=== PATIENT | male | born 1940 | race Caucasian/White ===

== ENCOUNTER 2020-07-18 19:51 | Inpatient (IN) | payer MEDICARE, OTHER ==
--- NOTE | 2020-07-18 19:57 | ED.PDOC ---
History of Present Illness - General Chief Complaint: Respiratory Problem Stated Complaint: Cough Time Seen by Provider: 07/18/20 19:52 Source: patient, RN notes reviewed, Vital Signs reviewed, EMS notes reviewed, old records, other - other ER Exam Limitations: no limitations - History of Present Illness Initial Comments: 80 yo Male with hx HTN comes in with 6 days of worsening cough, shortness of breath, fatigue, malaise. Denies sore throat, except when he coughs, no change in taste or smell. [facility]. Was found to be covid positive, WBC 3.6, otherwise cbc unremarkable, CXR showed bilateral pulmonary infiltrates. blood gas wioth low PO2 at 52.9, ph 7.472, [id number]. no hx of lung disease, does not wear oxygen at home. EKG shows NSR with PVC, LAD, LAFB, q wave in v1-v2, no prior for comparison. Denies any current chest pain. CMP shows Cr 1.34, which he recieved a small bolus per [facility] physician. cpk 43, bnp 150, troponin negative. d-dimer 574. Patient was given a dose of rocephin prior to transfer. Allergies/Adverse Reactions: Allergies NO KNOWN ALLERGY Allergy (Verified 07/18/20 20:05) Home Medications: Ambulatory Orders Carvedilol 6.25 mg PO DAILY 07/18/20 Losartan Potassium 50 mg PO DAILY 07/18/20 Pravastatin Sodium 20 mg PO DAILY 07/18/20 Warfarin Sodium 5 mg PO DAILY 07/18/20 Review of Systems - Review of Systems Constitutional: States: chills, fever, malaise, weakness EENTM: Denies: throat swelling, mouth pain Respiratory: States: cough, short of breath. Denies: wheezing Cardiology: Denies: chest pain, palpitations Gastrointestinal/Abdominal: Denies: abdominal pain, diarrhea, nausea, vomiting Genitourinary: Denies: frequency Musculoskeletal: Denies: joint pain, joint swelling, muscle pain, muscle stiffness Skin: Denies: rash Neurological: Denies: numbness, paresthesia, seizure, weakness Endocrine: Denies: unexplained weight gain, unexplained weight loss Hematologic/Lymphatic: Denies: blood clots, easy bleeding, easy bruising Past Medical History (General) - Patient Medical History Hx Seizures: No Hx Stroke: No Hx Dementia: No Hx Asthma: No Hx of COPD: No Hx Congestive Heart Failure: No Hx Hypertension: Yes Hx Diabetes: No Hx Renal Disease: No Hx Cancer: No Hx of HIV: No Hx Hepatitis B: No Hx Hepatitis C: No Hx MRSA: No Hx Other PMH: Yes - aortic dissection repair 2003 - Female History Patient is a Female of Child Bearing Age (10 -59 yrs old): No Family Medical History - Family History Mother Family History: Unknown Physical Exam - Physical Exam General Appearance: Alert, Comfortable, No apparent distress, Well Developed, Well Groomed, Well Hydrated, Well Nourished Eyes, Ears, Nose, Throat Exam: normal ENT inspection, other - hard of hearing. hearing aids in place. Neck: non-tender, full range of motion, supple, normal inspection Respiratory: chest non-tender, no respiratory distress, no accessory muscle use, rhonchi, other - hacking cough noted Cardiovascular/Chest: normal peripheral pulses, regular rate, rhythm, no edema Peripheral Pulses: radial,right: 2+, radial,left: 2+, dorsalis pedis,right: 2+, dorsalis pedis,left: 2+ Gastrointestinal/Abdominal: normal bowel sounds, non tender, soft, no organomegaly, no pulsatile mass Rectal Exam: deferred Extremity: normal range of motion, non-tender, normal inspection, no pedal edema, no calf tenderness, normal capillary refill 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 The history and assessments from nurses notes were reviewed and considered, and the patient's home medication list was also reviewed and considered. My assessment and the results of testing completed here in the ED were discussed with the patient. All questions were answered, and they express understanding of my assessment and the plan. will order bamlanivimab, also given dexamethasone. Already given antibiotics at [facility]. Will order blood cultures now. patient was transferred to the floor in stable condition. Yael Hou DO #[id number] 07/18/20 21:18 07/18/20 23:02 - Results/Orders Results/Orders: patient transferred to floor in stable condition. - EKG/XRAY/CT EKG: Sinus XRAY: chest Departure - Departure Clinical Impression: Pneumonia due to COVID-19 virus, Hypoxemia Disposition: Admit Patient Home Medications: Ambulatory Orders Carvedilol 6.25 mg PO DAILY 07/18/20 Losartan Potassium 50 mg PO DAILY 07/18/20 Pravastatin Sodium 20 mg PO DAILY 07/18/20 Warfarin Sodium 5 mg PO DAILY 07/18/20 Decision To Admit - Decistion To Admit Decision to Admit Reason: Medical Nature Decision to Admit Date: 07/18/20 Decision to Admit Time: 20:01
[2020-07-18] MEDS ORDERED: DEXAMETHASONE INJ 10 MG/ML VIAL IV ONE (20:10)
[2020-07-18] MEDS ORDERED: SODIUM CHLORIDE 0.9% 250ML 250 ML ONE (20:34)
--- NOTE | 2020-07-18 22:44 | HP ---
SUPERVISING PHYSICIAN: Ivan Diaz MD CHIEF COMPLAINT: Coughing. HISTORY OF PRESENT ILLNESS: Mr. Meier is an 80 year-old patient who presented to the Emergency Room from [place]. He has a history of 6 days of worsening cough, shortness of breath, fatigue with general malaise. He was diagnosed with Covid in [place] at the Emergency Room. His chest x-ray there showed bilateral pulmonary infiltrates with the patient showing some room air hypoxia. He was referred to the Emergency Room initially for reevaluation and transferred from the [place] Emergency Room to [facility] Emergency Room for possible infusion and monoclonal antibodies and admission for underlying Covid pneumonitis. Vital signs in the Emergency Room showed oxygen saturation 92% on 2 liter nasal cannula. Laboratory studies showed white count 3,300 with no lymphocytic count. He does have a history of aortic valve replacement and is on chronic Coumadin but his D-dimer on admission was 1310, INR was therapeutic at 3.12. Chemistries showed C-reactive protein 10.4, negative troponin. Blood cultures were completed. Respiratory panel showed positive for Covid and he was started on monoclonal infusion. Given he had been maintaining 02 saturations around 92% on 2 liter nasal cannula and was showing some hypoxia, the patient is going to be placed in observation for initial treatment for Covid pneumonitis. At time of observation he was showing to be in stable condition. PAST MEDICAL HISTORY: 1. Hypertension. 2. 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 PAST SURGICAL HISTORY: 1. Triple A repair 16 years previously. 2. Aortic valve replacement 16 years previously on chronic Coumadin therapy. 3. Appendectomy. 4. Bilateral cataracts. 5. Transthoracic aortic dissection. CURRENT MEDICATIONS: 1. Coumadin 5 mg daily. 2. Losartan 50 mg daily. 3. Pravastatin 20 mg daily. 4. Carvedilol 6.25 mg b.i.d. 5. Amlodipine 5 mg daily. ALLERGIES: No known drug allergies. FAMILY HISTORY: Mother at age 99 due to advanced age. Father at age 73 due to malnutrition secondary to a CVA. He has one sister who currently is in the hospital with a brain tumor and a stroke at age 75. SOCIAL HISTORY: The patient lives in [place], [place]. He is retired. He smoked tobacco but quit at age 45. He drinks alcohol on rare occasions. He is . He denies any illicit drug usage. REVIEW OF SYSTEMS: CONSTITUTIONAL: Positive for general malaise, fevers, weakness. HEENT: Denies headaches. vision changes, sore throat. nasal congestion, earaches. CHEST: As noted in history of present illness. Denies wheezing but has a cough and increasing shortness of breath. HEART: Denies chest pain, palpitations, or syncopal episodes. ABDOMEN: Denies nausea, vomiting, diarrhea or constipation, abdominal pain. GENITOURINARY: Denies dysuria, hematuria or polyuria. MUSCULOSKELETAL: Denies joint swelling, joint pain, muscle pain, muscle stiffness. SKIN: Denies lesions, rashes, moles or unexplained changes. NEUROLOGIC: Denies paresthesias, ataxia, numbness, seizures, weakness. HEMATOLOGICAL: Denies unexplained bleeding, easy bruising or transfusion reaction but is on chronic Coumadin therapy. PHYSICAL EXAMINATION: VITAL SIGNS: Temperature in the Emergency Room 99.0, pulse 63, blood pressure 130/70, respirations 18, oxygen saturation 93% on 2 liter nasal cannula. He does not wear oxygen at home. GENERAL: The patient looks to be resting comfortably and in no acute distress. HEENT: Tympanic membranes clear bilaterally. Oropharynx pink, moist without lesions. NECK: Supple, non-tender, full range of motion, no jugular venous distention. HEART: Regular rhythm with audible clicks from aortic valve. No other murmurs, rubs, or gallops noted. CHEST: Lung sounds a little diminished towards the bases, no rhonchi, rales, or wheezes noted. ABDOMEN: Soft, non-tender, positive bowel sounds. EXTREMITIES: No cyanosis, clubbing, or edema. NEUROLOGIC: Cranial nerves II through XII grossly intact, no obvious motor or sensory deficits. Facial features were symmetrical. Extraocular movements within normal limits. No notable nystagmus. He is alert and oriented x3. SKIN: Warm, pink and dry. RECTAL: Deferred. BACK: Without CVA or vertebral tenderness. LABORATORY: White count 3,300, hemoglobin 12.3, hematocrit 36.7, platelet count 150,000, differential did show to be without a left shift but he had a low lymphocytic count. Coagulation studies showed INR at 3.12, D-dimer 1310. Chemistries with normal electrolytes. Creatinine 1.08, magnesium normal at 1.9, calcium 8.4, liver functions all was negative. Troponin less than 0.02. C- reactive protein 10.4. RADIOLOGY: Chest x-ray per radiology interpretation showed right upper lobe infiltrate concerning for pneumonia. ASSESSMENT: 1. Covid-19 pneumonitis. 2. Right upper lobe pneumonia secondary to #1. 3. History of aortic valve replacement, mechanical, on chronic Warfarin therapy. 4. Hypertension. PLAN: Mr. Meier is going to be placed in observation. He was give a monoclonal infusion in the Emergency Room. Will follow his labs. Will start him on treatment medically with Decadron, Rocephin, azithromycin. He will be on Align. He is already on Coumadin, we will monitor his INR. His INR has typically stayed therapeutic between 2.5 and 3.5. We will hold off on reducing it due to the fact that he just received monoclonal infusion. He is in observation at this point. Hopefully, we anticipate being able to discharge him within the next 24-48 hours. He will be on oxygen weaning down to room air as possible. Until we can transition patient to outpatient management, we will continue to monitor and treat as needed. #[id number] [facility]
[2020-07-18] MEDS ORDERED: ACETAMINOPHEN 325 MG TAB PO PRN (22:58)
[2020-07-18] MEDS ORDERED: SODIUM CHLORIDE 0.9% (FLUSH) 10 ML SYG IV PRN (22:58)
[2020-07-18] MEDS ORDERED: ONDANSETRON INJ 4 MG/2 ML VIAL IV PRN (22:58)
[2020-07-18] MEDS ORDERED: IV SET AND CAP CHANGE INJ INJ SCH (23:00)
[2020-07-19] MEDS: PANTOPRAZOLE SODIUM IV 40 MG VIAL IV SCH (05:59)
--- NOTE | 2020-07-19 07:09 | RAD ---
PROCEDURE:XR CHEST 1 VIEW HISTORY:Pneumonia COMPARISON: The prior film is not available for comparison FINDINGS: Multiple midline sternal wires are in place. The heart appears unremarkable.. There is infiltrate seen within the right upper lobe concerning for pneumonia. There are small linear atelectatic changes seen at the left lung base. Mild emphysematous changes seen in both lungs. There are no acute bony or soft tissue abnormalities. IMPRESSION: Right upper lobe infiltrate concerning for pneumonia. Electronically signed by: Cezar Packer MD 07/19/2020 7:07 AM [facility]
[2020-07-19] MEDS ORDERED: ALBUTEROL INHALER 64 PUFF/8GM INH PRN (08:31)
[2020-07-19] MEDS ORDERED: PRAVASTATIN SODIUM 20 MG TAB ONE (08:44)
[2020-07-19] MEDS ORDERED: LOSARTAN POTASSIUM 25 MG TAB ONE (08:44)
[2020-07-19] MEDS ORDERED: CARVEDILOL 3.125 MG TAB ONE (08:44)
[2020-07-19] MEDS ORDERED: SODIUM CHL 0.9% 50ML MIN-BAG+ 50 ML IVPB ONE (09:42)
[2020-07-19] MEDS ORDERED: DEXAMETHASONE INJ 10 MG/ML VIAL ONE (09:42)
[2020-07-19] MEDS ORDERED: cefTRIAXone SODIUM 1 GM VIAL ONE (09:42)
[2020-07-19] MEDS: PRAVASTATIN SODIUM 20 MG TAB PO SCH (09:57)
[2020-07-19] MEDS: NON-FORMULARY MEDICATION 1 EA MIS (Carvedilol [Carvedilol] 6.25 MG) PO SCH (10:00)
[2020-07-19] MEDS: NON-FORMULARY MEDICATION 1 EA MIS (Losartan Potassium [Losartan Potassium] 50 MG) PO SCH (10:00)
[2020-07-19] MEDS: cefTRIAXone SODIUM 1 GM in SODIUM CHL 0.9% 50ML MIN-BAG+ 50 ML IVPB SCH (10:01)
[2020-07-19] MEDS: DEXAMETHASONE INJ 4 MG/ML VIAL IV SCH (10:02)
[2020-07-19] MEDS ORDERED: SODIUM CHLORIDE 0.9% 250ML 250 ML ONE (10:10)
[2020-07-19] MEDS ORDERED: AZITHROMYCIN IV 500 MG VIAL IVPB ONE (10:10)
[2020-07-19] MEDS: AZITHROMYCIN IV 500 MG in SODIUM CHLORIDE 0.9% 250ML 250 ML IVPB SCH (10:16)
[2020-07-19] MEDS ORDERED: REMDESIVIR 200 MG in SODIUM CHLORIDE 0.9% 250ML 250 ML IVPB ONE (11:30)
[2020-07-19] MEDS: ALBUTEROL INHALER 64 PUFF/8GM INH SCH ×3 (13:27→21:30)
[2020-07-19] MEDS: WARFARIN SODIUM 5 MG TAB PO SCH (15:38)
--- NOTE | 2020-07-19 17:14 | PN ---
SUPERVISING PHYSICIAN: Ivan Diaz MD ] DATE: 07/19/20 SUBJECTIVE: The patient seems to be doing well. He has no complaints. He is maintaining his 02 saturations on room air at times, requiring just minimal oxygen support. OBJECTIVE: VITAL SIGNS: Temperature 97.9, pulse 76, blood pressure 146/74, respirations 16, oxygen saturation 91% on room air at rest. GENERAL: Patient looks to be resting comfortably, is eating lunch and is in no distress. CHEST: Lung sounds are fairly clear but still a little diminished toward the bases. HEART: Regular rate and rhythm. ABDOMEN: Soft, non-tender, positive bowel sounds. EXTREMITIES: Without edema. NEUROLOGIC: He is alert and oriented x 3. LABORATORY: No repeat laboratory studies from admission. Will follow labs per protocol other than is C-reactive protein went up a little bit at 12.2. RADIOLOGY: Chest x-ray this morning per radiology interpretation shows again right upper lobe infiltrate concerning for pneumonia. ASSESSMENT: 1. Covid-19 pneumonitis. 2. Right upper lobe pneumonia secondary to #1. 3. History of aortic valve replacement, mechanical, on chronic Warfarin therapy. 4. Hypertension. PLAN: Will continue with current plan of care at this point with Rocephin, azithromycin, Decadron, Align and Protonix. Given that he had a monoclonal infusion will hold off on Remdesivir. Will work to titrate his 02 down. At this point, he does remain in observation. I am hoping to be able to discharge him within the next 24 hours if possible. We will continue to monitor as needed for oxygen and lab per protocol. Until we can transition patient to outpatient management, we will continue to monitor and treat as needed. #[id number] [facility]
[2020-07-19] MEDS: amLODIPine BESYLATE 5 MG TAB PO SCH (20:49)
[2020-07-20] MEDS ORDERED: PANTOPRAZOLE SODIUM IV 40 MG VIAL ONE (04:35)
[2020-07-20] MEDS: PANTOPRAZOLE SODIUM IV 40 MG VIAL IV SCH (05:55)
[2020-07-20] MEDS ORDERED: SODIUM CHLORIDE 0.9% 250ML 250 ML ONE (08:36)
[2020-07-20] MEDS ORDERED: LOSARTAN POTASSIUM 25 MG TAB ONE (08:36)
[2020-07-20] MEDS ORDERED: CARVEDILOL 3.125 MG TAB ONE (08:36)
[2020-07-20] MEDS ORDERED: DEXAMETHASONE INJ 10 MG/ML VIAL ONE (08:36)
[2020-07-20] MEDS ORDERED: AZITHROMYCIN IV 500 MG VIAL IVPB ONE (08:36)
[2020-07-20] MEDS ORDERED: cefTRIAXone SODIUM 1 GM VIAL ONE (08:37)
[2020-07-20] MEDS ORDERED: SODIUM CHL 0.9% 50ML MIN-BAG+ 50 ML IVPB ONE (08:37)
[2020-07-20] MEDS: cefTRIAXone SODIUM 1 GM in SODIUM CHL 0.9% 50ML MIN-BAG+ 50 ML IVPB SCH (08:50)
[2020-07-20] MEDS: AZITHROMYCIN IV 500 MG in SODIUM CHLORIDE 0.9% 250ML 250 ML IVPB SCH (08:53)
[2020-07-20] MEDS: DEXAMETHASONE INJ 4 MG/ML VIAL IV SCH (08:53)
[2020-07-20] MEDS: NON-FORMULARY MEDICATION 1 EA MIS (Carvedilol [Carvedilol] 6.25 MG) PO SCH (08:59)
[2020-07-20] MEDS: NON-FORMULARY MEDICATION 1 EA MIS (Losartan Potassium [Losartan Potassium] 50 MG) PO SCH (08:59)
[2020-07-20] MEDS: ALBUTEROL INHALER 64 PUFF/8GM INH SCH ×4 (09:00→20:00)
[2020-07-20] MEDS: PRAVASTATIN SODIUM 20 MG TAB PO SCH (09:59)
[2020-07-20] MEDS: WARFARIN SODIUM 5 MG TAB PO SCH (10:01)
--- NOTE | 2020-07-20 15:52 | PN ---
SUPERVISING PHYSICIAN: Ivan Diaz MD ] DATE: 06/2720 SUBJECTIVE: The patient seems to be doing okay. He has actually been able to tolerate room air at 92% but has not had any exertion at this point. He has not had any chest pain, nausea or vomiting or other complaints. OBJECTIVE: VITAL SIGNS: Temperature 98, pulse 60, blood pressure 127/64, oxygen saturation 92% on 1 liter nasal cannula. GENERAL: Patient looks to be resting comfortably, does not appear to be in any acute distress. CHEST: Lung sounds are fairly clear, diminished toward the bases. There is mild rhonchi heard noted in the right upper lung kline, more prominent on the posterior but is a little difficult to hear due to his mechanical heart valve. HEART: Regular rate and rhythm with audible mechanical valve click. ABDOMEN: Soft, non-tender, positive bowel sounds. EXTREMITIES: Without edema. NEUROLOGIC: He is alert and oriented x 3. LABORATORY: White count 6,200, hemoglobin 11.4, hematocrit 33.5, platelet count 162,000. Differential does show a left shift. Coagulation studies shows INR at 4.06, D-dimer 12.9. Chemistries show normal electrolytes. Creatinine 1.23, calcium 8.1 corrected to 8.2 with albumin 3.0. Liver functions all within normal limits. MICROBIOLOGY: Blood cultures negative at 24 hours. RADIOLOGY: No additional radiographic studies. ASSESSMENT: 1. Covid-19 pneumonitis. 2. Right upper lobe pneumonia secondary to #1. 3. History of aortic valve replacement, mechanical, on chronic Warfarin therapy. 4. Hypertension. PLAN: Will continue with current plan of care with the Rocephin, azithromycin, Decadron, Align and Protonix. We will still hold off on Remdesivir as he did get the monoclonal prior to admission. We are still titrating his 02 down. He is still showing mild hypoxia on one liter nasal cannula for a patient with Covid infection and right upper lobe pneumonia. Hopefully, we will be able to discharge him in the next 24 hours. Will continue with aggressive bronchial hygiene and follow labs and x-rays. Until we can transition patient to outpatient management, we will continue to monitor and treat as needed. #[id number] [facility]
[2020-07-20] MEDS ORDERED: amLODIPine BESYLATE 5 MG TAB ONE (19:55)
[2020-07-20] MEDS: amLODIPine BESYLATE 5 MG TAB PO SCH (20:30)
[2020-07-20] MEDS ORDERED: PRAVASTATIN SODIUM 20 MG TAB PO SCH (21:00)
[2020-07-21] MEDS ORDERED: PANTOPRAZOLE SODIUM IV 40 MG VIAL ONE (05:19)
[2020-07-21] MEDS: PANTOPRAZOLE SODIUM IV 40 MG VIAL IV SCH (05:58)
[2020-07-21] MEDS ORDERED: DEXAMETHASONE INJ 4 MG/ML VIAL ONE (07:41)
[2020-07-21] MEDS ORDERED: cefTRIAXone SODIUM 1 GM VIAL ONE (07:42)
[2020-07-21] MEDS ORDERED: CARVEDILOL 3.125 MG TAB ONE (07:42)
[2020-07-21] MEDS ORDERED: SODIUM CHL 0.9% 50ML MIN-BAG+ 50 ML IVPB ONE (07:42)
[2020-07-21] MEDS ORDERED: AZITHROMYCIN IV 500 MG VIAL IVPB ONE (07:42)
[2020-07-21] MEDS ORDERED: LOSARTAN POTASSIUM 25 MG TAB ONE (07:42)
[2020-07-21] MEDS ORDERED: SODIUM CHLORIDE 0.9% 250ML 250 ML ONE (07:42)
[2020-07-21] MEDS: NON-FORMULARY MEDICATION 1 EA MIS (Losartan Potassium [Losartan Potassium] 50 MG) PO SCH (08:51)
[2020-07-21] MEDS: DEXAMETHASONE INJ 4 MG/ML VIAL IV SCH (08:51)
[2020-07-21] MEDS: AZITHROMYCIN IV 500 MG in SODIUM CHLORIDE 0.9% 250ML 250 ML IVPB SCH (08:52)
[2020-07-21] MEDS: NON-FORMULARY MEDICATION 1 EA MIS (Carvedilol [Carvedilol] 6.25 MG) PO SCH (08:52)
[2020-07-21] MEDS: cefTRIAXone SODIUM 1 GM in SODIUM CHL 0.9% 50ML MIN-BAG+ 50 ML IVPB SCH (08:52)
[2020-07-21] MEDS: ALBUTEROL INHALER 64 PUFF/8GM INH SCH ×2 (09:25→13:05)
[2020-07-21] MEDS ORDERED: AZITHROMYCIN 250 MG TAB PO SCH (11:00)
[2020-07-21] MEDS ORDERED: WARFARIN SODIUM 5 MG TAB PO SCH (12:00)
[2020-07-21 14:07] VITALS: BP 133/76; TEMP 97.2
[2020-07-21 14:14] VITALS: O2SAT 95
--- NOTE | 2020-07-21 20:23 | DS ---
SUPERVISING PHYSICIAN: Butch Núñez M.D. ADMISSION DIAGNOSIS: 1. Covid-19 pneumonitis. 2. Right upper lobe pneumonia secondary to #1. 3. History of aortic valve replacement, mechanical, on chronic Warfarin therapy. 4. Hypertension. DISCHARGE DIAGNOSIS: 1. Covid-19 pneumonitis. 2. Right upper lobe pneumonia secondary to #1. 3. History of aortic valve replacement, mechanical, on chronic Warfarin therapy. 4. Hypertension. REASON FOR HOSPITALIZATION: Mr. Meier is an 80 year-old patient who presented to the Emergency Room from [place]. He has a history of 6 days of worsening cough, shortness of breath, fatigue with general malaise. He was diagnosed with Covid in [place] at the Emergency Room. His chest x-ray there showed bilateral pulmonary infiltrates with the patient showing some room air hypoxia. He was referred to the Emergency Room initially for reevaluation and transferred from the [place] Emergency Room to [facility] Emergency Room for possible infusion and monoclonal antibodies and admission for underlying Covid pneumonitis. Vital signs in the Emergency Room showed oxygen saturation 92% on 2 liter nasal cannula. Laboratory studies showed white count 3,300 with no lymphocytic count. He does have a history of aortic valve replacement and is on chronic Coumadin but his D-dimer on admission was 1310, INR was therapeutic at 3.12. Chemistries showed C-reactive protein 10.4, negative troponin. Blood cultures were completed. Respiratory panel showed positive for Covid and he was started on monoclonal infusion. Given he had been maintaining 02 saturations around 92% on 2 liter nasal cannula and was showing some hypoxia, the patient is going to be placed in observation for initial treatment for Covid pneumonitis. At time of observation he was showing to be in stable condition. LABORATORY STUDIES: White count on discharge was 5,700, hemoglobin 11.3, hematocrit 33.3, platelet count 174,000. Differential just showed a left shift. Coagulation studies showed that his INR was therapeutic on discharge at 3.42. D-dimer was down to 1190 from 1310 on admission. Chemistry showed normal electrolytes, creatinine at 0.95. Liver functions all within normal limits. C reactive protein was down from 12.2 to 4.9, prior to discharge. Urinalysis just showed trace intact blood, otherwise within normal limits. MICROBIOLOGY: Blood cultures are showing no growth at 48 hours. Respiratory panel was positive for COVID but negative for Influenza and other viral and bacterial targets as tested. HOSPITAL COURSE: Mr. Meier was sent over from [place] for COVID pneumonitis and further treatment. He did receive monoclonal antibody in the Emergency Room and then was placed initially in observation for further treatment. He did develop a right upper lobe pneumonia. He was treated aggressively with azithromycin, Rocephin, Decadron, breathing treatments and he was not given Remdesivir due to the fact that he had just received monoclonal infusion. Vital signs at discharge showed that he was 97.2 on his temperature, pulse 55, blood pressure 137/76. He was satting 96% on 1.5 liter nasal cannula and he was sent home on oxygen. It was felt that he had clinically improved well enough to continue with outpatient management, therefore was discharged to followup with Dr. Cole. PLAN: Mr. Meier was discharged on 07/21/20 with instructions to followup with Dr. Cole. He is to call his office this week to establish a follow appointment. He is to resume his usual activities as tolerated and to resume his usual diet as tolerated. He was to continue coverage with antibiotics for treatment for the underlying pneumonia and COVID infection with azithromycin, Cefdinir, Decadron and Albuterol. Condition on discharge was stable and improved. DISPOSITION: The patient is discharged home on oxygen. Medications prescribed at discharge included: 1. Azithromycin 500 mg daily for 2 days. No refills. 2. Cefdinir 300 mg daily, #14. No refills. 3. Decadron 4 mg, #7. No refills. 4. Albuterol inhaler 2 puffs 4 times daily as needed for shortness of breath. 5. Oxygen to maintain his O2 saturations at greater than 92 to 94% on nasal cannula at 2 liters. Once again, he was given warnings to return to the Emergency Department should he have any concerning symptoms and to followup with Dr. Cole. #[id number] [facility]
[2020-07-22] MEDS ORDERED: PANTOPRAZOLE SODIUM TAB 40 MG PO SCH (06:30)
[2020-07-22] MEDS ORDERED: LOSARTAN POTASSIUM 25 MG TAB PO SCH (09:00)
[2020-07-22] MEDS ORDERED: CARVEDILOL 3.125 MG TAB PO SCH (09:00)
== END 2020-07-21 16:15 | disposition home or self-care (01) | DRG 177 ==
LOC: ER 19:51 → OBSVTOIN 22:44 → MS 22:44
PROVIDERS: ADMIT Nurse Practitioner Acute Care; ATTEND Nurse Practitioner Family
DX: U07.1 COVID-19 (principal); J12.89 Other viral pneumonia; J18.1 Lobar pneumonia, unspecified organism; R09.02 Hypoxemia; I10 Essential (primary) hypertension; I44.4 Left anterior fascicular block; I49.3 Ventricular premature depolarization; Z95.2 Presence of prosthetic heart valve; Z79.01 Long term (current) use of anticoagulants; Z79.899 Other long term (current) drug therapy